=== PATIENT | male | born 1995 | race Two or more races ===

== ENCOUNTER 2019-06-11 22:32 | Emergency (ER) | payer SELFPAY ==
[~2019-06-11] VITALS: Ht 157.5 cm; Wt 72.2 kg
[2019-06-11 22:41] VITALS: Ht 157.5 cm; Wt 72.2 kg
[2019-06-12 01:04] LABS: BASOPHIL % 0.6 % (0-2); PLATELET COUNT 161 x10^3mcL (130-400); RED CELL DISTRIBUTION WIDTH 12.3 % (11.5-14.5)
[2019-06-12 01:11] LABS: CALCIUM 8.7 mg/dL (8.5-10.1); CARBON DIOXIDE 27.3 mmol/L (21-32); CHLORIDE SERUM 100 mmol/L (98-107); CREATININE SERUM 1.1 mg/dL (0.7-1.3); GFR1 > 60 mL/min; GLUCOSE SERUM 106 mg/dL (74-106); POTASSIUM SERUM 4.1 mmol/L (3.5-5.1); SODIUM SERUM 138 mmol/L (136-145)
[2019-06-12 01:16] LABS: ALBUMIN 3.9 g/dL (3.4-5.0); ALKALINE PHOSPHATASE 125 U/L (46-116); ALT/SGPT 376 U/L (16-63); AST/SGOT 196 U/L (15-37); BILIRUBIN TOTAL 0.56 mg/dL (0.20-1.00)
[2019-06-12 01:20] LABS: TOTAL PROTEIN, SERUM 8.7 g/dL (6.4-8.2)
[2019-06-12 03:44] VITALS: BP 117/73
== END 2019-06-12 03:44 | disposition home or self-care (01) ==
LOC: ED 22:32
PROVIDERS: Emergency Medicine
DX: B34.9 Viral infection, unspecified (principal)
CPT/HCPCS: 87804; J7030; Q0092